=== PATIENT | female | born 1965 | race Hispanic/Latino ===

== ENCOUNTER 2017-03-22 15:48 | Emergency (ER) | payer OTHER ==
[~2017-03-22] VITALS: Ht 165.1 cm; Wt 64.0 kg
--- OUTSIDE RECORDS SUMMARY | 2017-03-22 15:51 | XMS REPORT | Clinical Summary ---
Author Author [facility] Organization [facility] Address Unknown Phone Unavailable Care Team Providers Care Dental Ceramist Assistant Name Role Phone Vasiliy Castillo MD PCP Allergies No Known Allergies Current Medications Prescription Sig. Disp. Refills Start End Date Status Date metFORMIN (GLUCOPHAGE) Take 1,000 mg by mouth 2 Active 1000 MG tablet (two) times a day with meals. glimepiride (AMARYL) 2 MG Take 2 mg by mouth daily Active tablet before breakfast. PRN azelastine-fluticasone 1 spray by Each Nare 1 Bottle 3 06/16/19 Active (DYMISTA) 137-50 route 2 (two) times a 17 mcg/spray day. spray,non-aerosol hydroCHLOROthiazide Take 1 tablet (12.5 mg 30 tablet 1 06/19/1906/04 Active (HYDRODIURIL) 12.5 MG total) by mouth daily. 17 18 tablet metFORMIN (GLUCOPHAGE) TAKE ONE TABLET BY MOUTH 60 tablet 0 07/11/19 Active 1,000 mg tablet TWICE A DAY WITH A MEAL 17 lisinopril Take 1 tablet (2.5 mg 30 tablet 3 12/05/19 Active (PRINIVIL,ZESTRIL) 2.5 mg total) by mouth once 17 tablet daily. metFORMIN (GLUCOPHAGE) TAKE ONE TABLET BY MOUTH 60 tablet 0 02/25/19 Active 1,000 mg tablet TWICE A DAY WITH A MEAL 18 azelastine-fluticasone 1 spray by Each Nare 1 Bottle 3 12/03/1903/06 Discontin (DYMISTA) 137-50 route 2 (two) times a 16 17 ued mcg/spray day. spray,non-aerosol metFORMIN (GLUCOPHAGE) TAKE ONE TABLET BY MOUTH 60 tablet 0 02/23/19 03/31/19 Discontin 1,000 mg tablet TWICE A DAY WITH A MEAL 17 17 ued lisinopril TAKE ONE TABLET BY MOUTH 30 tablet 0 02/23/19 03/31/19 Discontin (PRINIVIL,ZESTRIL) 2.5 mg DAILY 17 17 ued tablet lisinopril TAKE ONE TABLET BY MOUTH 30 tablet 0 04/01/19 05/22/19 Discontin (PRINIVIL,ZESTRIL) 2.5 mg DAILY 17 17 ued tablet metFORMIN (GLUCOPHAGE) TAKE ONE TABLET BY MOUTH 60 tablet 0 04/01/19 05/22/19 Discontin 1,000 mg tablet TWICE A DAY WITH A MEAL 17 17 ued lisinopril TAKE ONE TABLET BY MOUTH 30 tablet 0 05/22/19 06/30/19 Discontin (PRINIVIL,ZESTRIL) 2.5 mg DAILY 17 17 ued tablet metFORMIN (GLUCOPHAGE) TAKE ONE TABLET BY MOUTH 60 tablet 0 05/22/19 06/16/19 Discontin 1,000 mg tablet TWICE A DAY WITH A MEAL 17 17 ued metFORMIN (GLUCOPHAGE) TAKE ONE TABLET BY MOUTH 60 tablet 0 06/23/19 07/11/19 Discontin 1,000 mg tablet TWICE A DAY WITH A MEAL 17 17 ued lisinopril TAKE ONE TABLET BY MOUTH 30 tablet 0 06/30/19 07/11/19 Discontin (PRINIVIL,ZESTRIL) 2.5 mg DAILY 17 17 ued tablet lisinopril TAKE ONE TABLET BY MOUTH 30 tablet 0 07/11/19 12/05/19 Discontin (PRINIVIL,ZESTRIL) 2.5 mg DAILY 17 17 ued tablet metFORMIN (GLUCOPHAGE) TAKE ONE TABLET BY MOUTH 60 tablet 0 02/07/20 02/25/19 Discontin 1,000 mg tablet TWICE A DAY WITH A MEAL 17 18 ued Active Problems No known active problems Encounters Date Type Specialty Care Team Description 02/25/2017 Refill Internal Medicine Indu Castillo MD 02/06/2017 Refill Internal Medicine Indu Castillo MD 12/04/2016 Refill Internal Medicine Shweta Coker MA 07/10/2016 Refill Internal Medicine Indu Castillo MD 06/29/2016 Refill Internal Medicine Indu Castillo MD 06/19/2016 Refill Internal Medicine Indu Castillo MD 06/18/2016 Telephone Internal Medicine Luzmaria Brothers MA 06/18/2016 Orders Only Internal Medicine Laverne Glez MD 06/15/2016 Office Visit Internal Medicine Laverne Glez MD Peripheral edema (Primary Dx);Syncope, unspecified syncope type;Type 2 diabetes mellitus without complication, without long-term current use of insulin;Atypical chest pain;Right lower quadrant abdominal pain 05/21/2016 Refill Internal Medicine Indu Castillo MD 03/31/2016 Refill Internal Medicine Indu Castillo MD after 03/21/2016 Family History Medical History Relation Name Comments Breast cancer Cousin Depression Father Diabetes Mother Kaity Heart disease Mother Kaity Relation Name Status Comments Cousin Father Mother Kaity Alive Social History Tobacco Use Types Packs/Day Years Used Date Light Tobacco Smoker Cigarettes 0.25 3 Started: 02/08/2013 Smokeless Tobacco: Never Used Tobacco Cessation: Ready to Quit: No; Counseling Given: Yes Alcohol Use Drinks/Week oz/Week Comments Yes 6 Cans of 4.8 6 to 8 beers a week beer Sex Assigned at Date Recorded Not on file Last Filed Vital Signs Vital Sign Reading Time Taken Blood Pressure 128/71 06/15/2016 3:27 PM CDT Pulse 67 06/15/2016 3:27 PM CDT Temperature 36.4 C (97.5 F) 06/15/2016 3:27 PM CDT Respiratory Rate 16 06/15/2016 3:27 PM CDT Oxygen Saturation - - Inhaled Oxygen - - Concentration Weight 68 kg (150 lb) 06/15/2016 3:27 PM CDT Height 165.1 cm (5' 5") 06/15/2016 3:27 PM CDT Body Mass Index 24.96 06/15/2016 3:27 PM CDT Plan of Treatment Health Maintenance Due Date Last Done Comments FOOT EXAM 1974 PAP SMEAR 1985 COLONOSCOPY 2014 INFLUENZA VACCINE 09/15/2016 OPHTHALMOLOGY EXAM 09/26/2016 09/27/2015 URINE MICROALBUMIN 09/26/2016 09/27/2015, 06/10/2015 MAMMOGRAM 11/21/2017 11/22/2015, 09/27/2015, 09/28/2014, Additional history exists Results * CBC with platelet and differential (06/17/2016 10:26 AM) Component Value Ref Range WBC 6.2 3.4 - 10.8 x10E3/uL RBC 4.41 3.77 - 5.28 x10E6/uL HGB 13.9 11.1 - 15.9 g/dL HCT 41.1 34.0 - 46.6 % MCV 93 79 - 97 fL MCH 31.5 26.6 - 33.0 pg MCHC 33.8 31.5 - 35.7 g/dL RDW 13.5 12.3 - 15.4 % Platelet count 320 150 - 379 x10E3/uL Neutrophils 46 % Lymphocytes 42 % Monocytes 7 % Eosinophils 4 % Basophils 1 % Neutrophils, absolute 2.9 1.4 - 7.0 x10E3/uL Lymphocytes, absolute 2.6 0.7 - 3.1 x10E3/uL Monocytes, absolute 0.4 0.1 - 0.9 x10E3/uL Eosinophils, absolute 0.2 0.0 - 0.4 x10E3/uL Basophils, absolute 0.0 0.0 - 0.2 x10E3/uL Immature granulocytes 0 % Immature grans (abs) 0.0 0.0 - 0.1 x10E3/uL Specimen Performing Laboratory Blood [facility] Narrative Performed at:01 - [facility] [id number] [employer]obile Or Truck Rental Dispatcher: Lincoln Garcia MD, Phone:[phone] * Comprehensive metabolic panel (06/17/2016 10:26 AM) Component Value Ref Range Glucose 147 (H) 65 - 99 mg/dL BUN, whole blood 7 6 - 24 mg/dL Creatinine 0.71 0.57 - 1.00 mg/dL EGFR Non-Afr. Cypriot 99 >59 mL/min/1.73 EGFR 114 >59 mL/min/1.73 BUN/creatinine ratio 10 9 - 23 Sodium 142 134 - 144 mmol/L Potassium 4.8 3.5 - 5.2 mmol/L Chloride 97 96 - 106 mmol/L CO2 27 18 - 29 mmol/L Calcium 10.0 8.7 - 10.2 mg/dL Protein 7.1 6.0 - 8.5 g/dL Albumin, S 4.6 3.5 - 5.5 g/dL Globulin, total 2.5 1.5 - 4.5 g/dL Albumin/globulin ratio 1.8 1.2 - 2.2 Total bilirubin <0.2 0.0 - 1.2 mg/dL Alkaline phosphatase 78 39 - 117 IU/L AST 17 0 - 40 IU/L ALT 18 0 - 32 IU/L Specimen Performing Laboratory Blood [facility] Narrative Performed at:01 - [id number] [employer] Dispatcher: Lincoln Garcia MD, Phone:[phone] * POC urinalysis dipstick (06/15/2016 4:25 PM) Component Value Ref Range Color urine, POC Yellow Clarity urine, POC Clear Glucose urine, POC Negative Negative Bilirubin urine, POC Negative Negative Ketones urine, POC Negative Negative Specific gravity urine, 1.010 1.005 - 1.030 POC Blood urine, POC Negative Negative pH urine, POC 6.0 5.0, 5.5, 6.0, 6.5, 7.0, 7.5, 8.0, 8.5 Protein urine, POC Negative Negative Urobilinogen urine, POC <2.0 <2.0 Nitrite urine, POC Negative Negative Leukocyte esterase urine, Negative Negative POC Specimen Performing Laboratory Urine * POC glycosylated hemoglobin (Hb A1C) (06/15/2016 4:11 PM) Component Value Ref Range POC Hemoglobin A1C 6.0 % Specimen Performing Laboratory Blood * ECG 12 lead (06/15/2016 2:52 PM) Component Value Ref Range Ventricular rate 67 Atrial rate 67 GA interval 146 QRSD interval 78 QT interval 404 QTC interval 426 P axis 1 31 QRS axis 1 15 T wave axis 61 EKG impression Normal sinus rhythm-Normal ECG-In automated comparison with ECG of 27-SEP-2015 12:05,-No significant change was found- Specimen Performing Laboratory [facility] [address] [place] [address] after 03/21/2016 Insurance Payer Benefit Subscriber ID Type Phone Address Plan / Group HUMANA HUMANA [id number] HMO HMO/POS/EP O/OPEN ACCESS y [place] [phone] Home: NELIA LOJA Personal/F Self 1965 Work: [address] [place], [place] [address]y [place] [phone] Home: NELIA LOJA [facility] Self 1965 Work: [address] [place] [address] [place] [id number] Liability Home:
[2017-03-22] MEDS ORDERED: ASPIRIN 81 MG CHEW TAB PO ONE (16:00)
--- NOTE | 2017-03-22 16:52 | Diagnostic Imaging Report ---
PROCEDURE: A single AP view of the chest. COMPARISON: None. INDICATIONS: CHEST PAIN FINDINGS: Lines/tubes: None. Lungs: The lungs are well inflated and clear. There is no evidence of pneumonia or pulmonary edema. Pleura: There is no pleural effusion or pneumothorax. Heart and mediastinum: The heart and the mediastinum are unremarkable. Bones: No acute bony abnormality. IMPRESSION: 1. No acute cardiopulmonary disease. Dictated by: Gustavo Boyer M.D. on 03/22/2017 at 17:02 Electronically approved by: Gustavo Boyer M.D. on 03/22/2017 at 17:02
[2017-03-22 19:53] LABS: BASOPHILS % 0.5 % (0.0-1.0); EOSINOPHILS # (AUTO) 0.3 (0.0-0.4); EOSINOPHILS % 3.4 % (0.0-6.0); HEMATOCRIT 40.7 % (34.2-44.1); HEMOGLOBIN 13.9 g/dL (12.0-16.0); LYMPHOCYTES # (AUTO) 3.2 (1.0-3.2); LYMPHOCYTES % 37.5 % (18.0-39.1); MEAN CORPUSCULAR HEMOGLOBIN 32.3 pg (28-32); MEAN CORPUSCULAR HGB CONC 34.2 g/dL (31-35); MEAN CORPUSCULAR VOLUME 94.4 fL (81-99); MONOCYTES # (AUTO) 0.5 (0.2-0.8); MONOCYTES % 6.4 % (4.4-11.3); NEUTROPHILS # (AUTO) 4.4 (2.1-6.9); NEUTROPHILS % 51.8 % (38.7-80.0); PLATELET COUNT 264 x10e3/uL (140-360); RED BLOOD COUNT 4.31 x10e6/uL (3.6-5.1); RED CELL DISTRIBUTION WIDTH 12.8 % (11.7-14.4)
[2017-03-22 19:55] LABS: BILIRUBIN,URINE NEGATIVE (NEGATIVE); CLARITY,URINE CLEAR (CLEAR); COLOR,URINE YELLOW (YELLOW); KETONES,URINE NEGATIVE (NEGATIVE); LEUKOCYTE ESTERASE ,URINE NEGATIVE (NEGATIVE); NITRITE,URINE NEGATIVE (NEGATIVE); PROTEIN,URINE DIPSTICK NEGATIVE (NEGATIVE); URINE UROBILINOGEN 0.2 mg/dL (0.2 - 1)
[2017-03-22 19:57] LABS: INR 0.81; PROTHROMBIN TIME 11.6 seconds (11.9-14.5)
[2017-03-22 19:58] LABS: PARTIAL THROMBOPLASTIN TIME 27.4 seconds (23.8-35.5)
[2017-03-22 20:16] LABS: ALANINE AMINOTRANSFERASE 23 IU/L (0-55); ALBUMIN 4.1 g/dL (3.5-5.0); ALBUMIN/GLOBULIN RATIO 1.1 (0.8-2.0); ALKALINE PHOSPHATASE 75 IU/L (40-150); ANION GAP 14.4 mmol/L (8-16); BLOOD UREA NITROGEN 11 mg/dL (7-26); BUN/CREATININE RATIO 17 (6-25); CALCIUM 9.9 mg/dL (8.4-10.2); CARBON DIOXIDE 26 mmol/L (22-29); CHLORIDE 104 mmol/L (98-107); CREATINE KINASE 52 IU/L (29-168); CREATININE, SERUM 0.63 mg/dL (0.57-1.11); EST GLOMERULAR FILTRATION RATE > 60 ML/MIN (60-); GLUCOSE 96 mg/dL (74-118); POTASSIUM 4.4 mmol/L (3.5-5.1); SODIUM 140 mmol/L (136-145)
[2017-03-22 20:17] LABS: EPITHELIAL CELLS,URINE FEW /LPF
[2017-03-22 20:38] LABS: THYROID STIMULATING HORMONE 0.959 uIU/mL (0.350-4.940)
[2017-03-22] MEDS ORDERED: ONDANSETRON HCL INJ 2 MG/ML VIAL IV PRN (21:00)
[2017-03-22] MEDS ORDERED: MORPHINE SULFATE 2 MG/ML SYR IV PRN (21:00)
[2017-03-22] MEDS ORDERED: DEXTROSE 50% SYRINGE 50 ML IV PRN (21:00)
[2017-03-22] MEDS ORDERED: FAMOTIDINE 20 MG/2 ML VIAL IV SCH (21:00)
[2017-03-22] MEDS ORDERED: SODIUM CHLORIDE FLUSH 10 ML SYR INJ PRN (21:00)
[2017-03-22] MEDS ORDERED: INSULIN REGULAR, HUMAN 100 UNIT/1 ML 3ML VIAL SQ SCH (21:00)
--- OUTSIDE RECORDS SUMMARY | 2017-03-22 22:03 | XMS REPORT ---
Author Author [facility] Address Unknown Phone Unavailable Care Team Providers Care Panama Hat Smearer Name Role Phone ISATU BLACK Unavailable Unavailable Problems This patient has no known problems. Allergies, Adverse Reactions, Alerts This patient has no known allergies or adverse reactions. Medications This patient has no known medications. Results Test Description Test Time Test Comments Text Results Atomic Results Result Comments CHEST SINGLE (PORTABLE) [place] [address] Patient Name: OLLIE NATHAN MR #: [id number] : 1965 Age/Sex: 51/F Req #: [id number] Adm Physician: Ordered by: LISA MENDEZ RETREAD OPERATOR Report # : [id number] Location: ER Room/Bed: Procedure: [id number] DX/CHEST SINGLE (PORTABLE) Exam Date: Exam Time: REPORT STATUS: Signed PROCEDURE: A single AP view of the chest. COMPARISON: None. INDICATIONS: CHEST PAIN FINDINGS: Lines/tubes: None. Lungs: The lungs are well inflated and clear. There is no evidence of pneumonia or pulmonary edema. Pleura: There is no pleural effusion or pneumothorax. Heart and mediastinum: The heart and the mediastinum are unremarkable. Bones: No acute bony abnormality. IMPRESSION: 1. No acute cardiopulmonary disease. Dictated by: Kelsy Boyer M.D. on 03/22/2017 at 17:02 Electronically approved by: Kelsy Boyer M.D. on 03/22/2017 at 17:02 Dictated By: KELSY BOYER MD 01 Transcribed By: ELVIA on 03/22/171701 COPY TO: LISA MENDEZ NP
--- OUTSIDE RECORDS SUMMARY | 2017-03-22 22:03 | XMS REPORT | Clinical Summary ---
Author Author [facility] Organization [facility] Address Unknown Phone Unavailable Care Team Providers Care Gas Or Water Meter Installer Name Role Phone Vasiliy Castillo MD PCP [...] Blood [facility] Narrative Performed at:01 - [facility] [id number] Access Control Officer: Lincoln Garcia MD, Phone:[phone] * Comprehensive metabolic panel (06/17/2016 10:26 AM) Component Value Ref Range Glucose 147 (H) 65 - 99 mg/dL BUN, whole blood 7 6 - 24 mg/dL Creatinine 0.71 0.57 - 1.00 mg/dL EGFR Non-Afr. Indonesian 99 >59 mL/min/1.73 EGFR 114 >59 mL/min/1.73 [...] Laboratory Blood [facility] Narrative Performed at:01 - [id number] Access Control Officer: Lincoln Garcia MD, Phone:[phone] * POC urinalysis dipstick (06/15/2016 4:25 PM) [...] Range Ventricular rate 67 Atrial rate 67 NM interval 146 QRSD interval 78 QT interval 404 QTC interval 426 P axis 1 31 QRS axis 1 15 T wave axis 61 EKG impression Normal sinus rhythm-Normal ECG-In automated comparison with ECG of 27-SEP-2015 12:05,-No significant change was found- Specimen Performing Laboratory [facility] [address] [place] [address] after 03/21/2016 Insurance Payer Benefit Subscriber ID Type Phone Address Plan / Group HUMANA HUMANA [id number] HMO HMO/POS/EP O/OPEN ACCESS y [place] [phone] Home: NELIA LOJA Personal/F Self 1965 Work: [address] [place], [place] [address]y [place] [phone] Home: NELIA LOJA [facility] Self 1965 Work: [address] [place] [address] [place] [id number] Liability Home:
[2017-03-23] MEDS ORDERED: NITROGLYCERIN 2% OINT 1 GM PKT TOP SCH
[2017-03-23] MEDS ORDERED: ASPIRIN 81 MG ENTERIC COATED PO SCH (09:00)
== END 2017-03-22 22:27 | disposition left against medical advice (07) ==
LOC: ER 15:48 → ERHOLD 22:01 → UNDOADMOB 22:01
DX: R07.9 Chest pain, unspecified (principal); M79.604 Pain in right leg
CPT/HCPCS: 36415; 71045; 80053; 81001; 82550; 82553; 83880; 84443; 84484; 85025; 85379; 85610; 85730; 87086; 93005; 93971; 99284

== ENCOUNTER 2020-06-18 16:58 | Emergency (ER) | payer OTHER ==
[~2020-06-18] VITALS: Ht 165.1 cm; Wt 64.0 kg
[2020-06-18] MEDS ORDERED: ONDANSETRON HCL INJ 2MG/ML 2ML 2 MG/ML VIAL IV STA (17:38)
[2020-06-18] MEDS ORDERED: KETOROLAC TROMETHAMINE 30 MG/ML VIAL IV STA (17:38)
[2020-06-18] MEDS ORDERED: SODIUM CHLORIDE 0.9% 1000ML 1,000 ML IV STA (17:38)
[2020-06-18] MEDS ORDERED: ACETAMINOPHEN 325 MG TAB PO ONE (17:45)
[2020-06-18] MEDS ORDERED: MORPHINE SULFATE INJ 4 MG/ML INJ 1ML IV ONE (17:45)
[2020-06-18 17:55] LABS: BASOPHILS % 0.2 % (0.0-1.0); EOSINOPHILS # (AUTO) 0.2 (0.0-0.4); EOSINOPHILS % 1.9 % (0.0-6.0); HEMATOCRIT 39.7 % (34.2-44.1); HEMOGLOBIN 13.3 g/dL (12.0-16.0); LYMPHOCYTES % 11.4 % (18.0-39.1); MEAN CORPUSCULAR HEMOGLOBIN 31.1 pg (28-32); MEAN CORPUSCULAR HGB CONC 33.5 g/dL (31-35); MONOCYTES # (AUTO) 0.3 (0.2-0.8); NEUTROPHILS # (AUTO) 7.5 (2.1-6.9); NEUTROPHILS % 83.2 % (38.7-80.0); PLATELET COUNT 267 x10e3/uL (140-360); RED BLOOD COUNT 4.27 x10e6/uL (3.6-5.1); RED CELL DISTRIBUTION WIDTH 13.2 % (11.7-14.4)
[2020-06-18 18:13] LABS: ALANINE AMINOTRANSFERASE 24 IU/L (0-55); ALBUMIN/GLOBULIN RATIO 1.2 (0.8-2.0); ALKALINE PHOSPHATASE 88 IU/L (40-150); ANION GAP 17.8 mmol/L (8-16); BLOOD UREA NITROGEN 12 mg/dL (7-26); BUN/CREATININE RATIO 18 (6-25); CALCIUM 9.5 mg/dL (8.4-10.2); CARBON DIOXIDE 25 mmol/L (22-29); CHLORIDE 101 mmol/L (98-107); CREATINE KINASE 54 IU/L (29-168); CREATININE, SERUM 0.68 mg/dL (0.57-1.11); EST GLOMERULAR FILTRATION RATE > 60 ML/MIN (60-); GLUCOSE 116 mg/dL (74-118); POTASSIUM 3.8 mmol/L (3.5-5.1); SODIUM 140 mmol/L (136-145)
[2020-06-18] MEDS ORDERED: IOPAMIDOL 370 MG/ML 200 ML INFUS..BTL INJ ONE (18:35)
[2020-06-18] MEDS ORDERED: SODIUM CHLORIDE 0.9% 50ML 50 ML ONE (18:35)
[2020-06-18 18:52] LABS: CLARITY,URINE SL CLOUDY (CLEAR); COLOR,URINE YELLOW (YELLOW); KETONES,URINE NEGATIVE (NEGATIVE); LEUKOCYTE ESTERASE ,URINE NEGATIVE (NEGATIVE); NITRITE,URINE NEGATIVE (NEGATIVE); PROTEIN,URINE DIPSTICK NEGATIVE (NEGATIVE); URINE UROBILINOGEN 0.2 mg/dL (0.2 - 1)
[2020-06-18 19:01] LABS: EPITHELIAL CELLS,URINE RARE /LPF
[2020-06-18] MEDS ORDERED: FLAGYL500 MG PO (21:09)
[2020-06-18] MEDS ORDERED: CIPRO250 MG PO (21:09)
== END 2020-06-18 21:22 | disposition home or self-care (01) ==
LOC: ER 17:41
DX: R50.9 Fever, unspecified (principal); B34.9 Viral infection, unspecified; K52.9 Noninfective gastroenteritis and colitis, unspecified; E11.9 Type 2 diabetes mellitus without complications
CPT/HCPCS: 36415; 71045; 74177; 80053; 81001; 82550; 82553; 82948; 83605; 84484; 85025; 87040; 99284; J1885; J2405; J7030; Q9967; J2270